=== PATIENT | female | born 1980 | race African-American/Black ===

== ENCOUNTER 2016-12-01 07:35 | Inpatient (IN) | payer MEDICAID ==
[~2016-12-01 07:35] MED LIST: ALLERGY MED; CARAFATE1 G2 PO; CLARITIN10 M2; COLACE1 EAC1; COLACE1 EAC1 RC; DULCOLAX STOOL100 MG; EXCEDRIN MIGRAI1 TAB PO; FLONASE ALLERG9.9 ML; IRON1 TA1 PO; IRON325 M3 PO; MOTRIN800 MG PO; NEXIUM20 M1 PO; NORCO 5/325 TAB1 TAB PO; NORCO 5/3251 TAB PO; OMEPRAZOLE20 M4 PO; OXYCODONE/APAP PO; PRENATAL-U CAPS1 CAP PO; PRENATAL1 EACH PO; SENNA-S TABLET1 EAC1 PO; TRIPNIP TOP; VISTARIL50 MG PO; VITAMIN B650 M1 PO
[2016-12-01 08:32] LABS: BASO % 0.2 % (0-2); EOS % 1.2 % (0-7); EOSINOPHIL ABSOLUTE COUNT 0.1 tho/cmm (0.0-0.7); HCT-HEMATOCRIT 38.7 % (34.0-49.0); HGB-HEMOGLOBIN 13.4 gm/dl (12.0-15.5); IMMATURE GRANULOCYTES ABSOLUTE 0.01 tho/cmm (0-0.03); IMMATURE GRANULOCYTES PERCENT 0.2 % (0-0.3); LYMPH % 34.5 % (20-45); MCH (MEAN CORPUSCULAR HGB) 30.4 pg (28.0-32.0); MCHC MEAN CORPUSCULAR HGB CONC 34.6 % (32.0-36.0); MCV (MEAN CELL VOLUME) 87.8 fl (82.0-96.0); MONO % 9.1 % (0-12); MONOCYTE ABSOLUTE COUNT 0.5 tho/cmm (0.0-1.2); NEUTROPHIL ABSOLUTE COUNT 3.2 tho/cmm (1.6-8.0); NEUTROPHIL-AUTOMATED 3.2 tho/cmm (1.6-8.0); NEUTROPHILS % 54.8 % (40-80); PLATELET COUNT 240 tho/cmm (150-450); RED BLOOD COUNT 4.41 mil/cmm (4.00-5.20); WHITE BLOOD COUNT 5.7 tho/cmm (4.0-10.0)
[2016-12-02 07:49] LABS: HCT-HEMATOCRIT 31.6 % (34.0-49.0); HGB-HEMOGLOBIN 10.9 gm/dl (12.0-15.5); MCV (MEAN CELL VOLUME) 87.1 fl (82.0-96.0); RED CELL DISTRIBUTION WIDTH 14.1 % (12.4-16.4)
[2016-12-03] MEDS ORDERED: NORCO 5-325 TA1 EACH PO (22:12)
[2016-12-04] MEDS ORDERED: IBUPROFEN800 M1 PO (09:35)
== END 2016-12-04 15:30 | DRG 766 ==
LOC: LDR 07:35 → OBGD 14:13
PROVIDERS: Obstetrics & Gynecology Maternal & Fetal Medicine; ADMIT Family Medicine
PROC: 10D00Z1 Extraction of Products of Conception, Low, Open Approach (ICD-10-PCS; principal; 2016-12-01)
DX: O99.824 Streptococcus B carrier state complicating childbirth (principal); Z87.59 Personal history of other complications of pregnancy, childbirth and the puerperium; O34.211 Maternal care for low transverse scar from previous cesarean delivery; Z37.0 Single live birth; Z3A.39 39 weeks gestation of pregnancy; Z88.5 Allergy status to narcotic agent
CPT/HCPCS: J0690; J2270; J2590